=== PATIENT | female | born 1955 | race Caucasian/White ===

== ENCOUNTER 2020-11-18 16:00 | Inpatient (IN) | payer BC, OTHER, MEDICAID ==
[~2020-11-18] VITALS: Ht 172.7 cm; Wt 77.6 kg
[~2020-11-18 16:00] MED LIST: BENZTROPINE MESY2 MG; CALCIUM 500+D1 EAC2; CLONAZEPAM PO; EFFEXOR XR150 MG PO; LEXAPRO20 MG; NORCO 5-325 TA1 EACH PO
[2020-11-18 16:08] VITALS: BP 148/72
[2020-11-18 16:29] LABS: ABSOLUTE EOSINOPHILS 0.1 thou/uL (0.0-0.7); ABSOLUTE LYMPHOCYTES 2.8 thou/uL (0.8-5.3); ABSOLUTE MONOCYTES 0.3 thou/uL (0.0-1.2); ABSOLUTE NEUTROPHILS 2.9 thou/uL (1.6-8.1); BASOPHILS 0.8 %; EOSINOPHILS 1.3 %; HEMATOCRIT 38.3 % (37.0-47.0); HEMOGLOBIN 12.6 gm/dL (12.0-15.0); LYMPHOCYTES 45.4 %; MCH 27.9 pg (26.0-34.0); MCV 84.5 fL (80.0-100.0); MONOCYTES 4.7 %; MPV 8.5 fl. (7.2-11.1); NUCLEATED RBCS 0 /100WBC; PLATELET COUNT* 277 thou/uL (150-400); POLYS 47.8 %; RBC 4.54 mil/uL (4.20-5.00); RDW-CV 14.7 % (10.5-14.5); WBC 6.1 thou/uL (4.0-11.0)
[2020-11-18 16:36] LABS: CALCIUM 10.5 mg/dL (8.5-10.1); POTASSIUM 3.4 mmol/L (3.5-5.1)
[2020-11-18 16:39] LABS: APTT 21.7 Seconds (25.0-31.3); INR 1.1; PROTIME 11.3 Seconds (9.20-11.50)
[2020-11-18 16:46] LABS: ALBUMIN 3.7 g/dL (3.4-5.0); TOTAL BILIRUBIN 0.5 mg/dL (<0.1-1.0)
[2020-11-18 17:14] LABS: URINE BLOOD 1+ (Negative); URINE CLARITY SL CLOUDY; URINE COLOR YELLOW; URINE GLUCOSE-RANDOM NEGATIVE (Negative); URINE LEUKOCYTES-REFLEX 1+ (Negative); URINE PROTEIN 1+ (Negative); URINE SPECIFIC GRAVITY >= 1.030 (1.005-1.030)
[2020-11-18 17:19] LABS: ICTOTEST (BILI CONFIRMATORY) Negative (Negative); URINE BILIRUBIN 1+ (Negative); URINE KETONES 3+ (Negative); URINE NITRITE-REFLEX POSITIVE (Negative)
[2020-11-18 17:25] LABS: SQUAMOUS 0-3 Few /LPF (0-3); WBC CLUMPS Few (None Seen)
[2020-11-18 17:26] LABS: BACTERIA-REFLEX >30 Many /HPF (None Seen); CRYSTALS None Seen /LPF (None Seen); HYALINE CASTS >10 Many /LPF (None Seen); MUCUS >6 Heavy strn/LPF (None Seen); URINE RBC 0-2 Rare /HPF (0-2)
[2020-11-18 18:38] VITALS: BP 128/99
[2020-11-18 20:00] VITALS: BP 136/76
[2020-11-19 04:57] LABS: HEMATOCRIT 33.4 % (37.0-47.0); MCH 27.7 pg (26.0-34.0); MCHC 32.9 g/dL (28.0-37.0); MCV 84.2 fL (80.0-100.0); MPV 8.7 fl. (7.2-11.1); RBC 3.97 mil/uL (4.20-5.00); RDW-CV 14.8 % (10.5-14.5); WBC 5.3 thou/uL (4.0-11.0)
[2020-11-19 05:25] LABS: CALCIUM 8.8 mg/dL (8.5-10.1); CREATININE 0.6 mg/dL (0.6-1.3); POTASSIUM 3.3 mmol/L (3.5-5.1)
[2020-11-19 08:00] VITALS: BP 128/67
--- NOTE | 2020-11-19 11:49 | EKG ---
[place] [address] ELECTROCARDIOGRAM REPORT Name: HUGO CAST Room: [address] ADM IN [facility].#: [id number] Admission: 11/18/20 Attend Phys: Marcela Guerrier MD Discharge: Date of : 53 Date of Service: 11/18/20 1620 Report #: [id number] THIS REPORT FOR: //name// [facility] ED Test Date: 2020-11-18 Test Time: 16:20:02 Pat Name: HUGO CAST Department: Room: [facility] Gender: F Immigration Judge: CCD : 1955 Requested By: Stanley Hernandes Order Number: [id number] MD: Marcos Laurent Measurements Intervals [place] Rate: 115 P: 53 OR: 164 QRS: 71 QRSD: 127 T: -20 QT: 354 QTc: 490 Interpretive Statements Sinus tachycardia Right bundle branch block Anterolateral infarct, age indeterminate Baseline wander in lead(s) II No previous ECG available for comparison Electronically Signed On 11-19-2020 11:49:48 HOME CARE MUSIC THERAPIST by Marcos Laurent [email or web address] <ELECTRONICALLY SIGNED> By: Marcos Laurent MD, FAC 11/19/20 1149 1620 1620 Marcos Laurent MD, [facility] /EPI
[2020-11-19 16:26] VITALS: BP 110/68
[2020-11-19 20:37] VITALS: BP 134/54
[2020-11-20 04:37] LABS: HEMATOCRIT 31.7 % (37.0-47.0); HEMOGLOBIN 10.6 gm/dL (12.0-15.0); MCH 27.9 pg (26.0-34.0); MCHC 33.4 g/dL (28.0-37.0); MCV 83.6 fL (80.0-100.0); MPV 8.2 fl. (7.2-11.1); RBC 3.79 mil/uL (4.20-5.00); RDW-CV 14.3 % (10.5-14.5); WBC 4.8 thou/uL (4.0-11.0)
[2020-11-20 04:44] LABS: CALCIUM 8.3 mg/dL (8.5-10.1); CREATININE 0.6 mg/dL (0.6-1.3); POTASSIUM 4.2 mmol/L (3.5-5.1)
[2020-11-20 08:00] VITALS: BP 141/96
[2020-11-20] MEDS ORDERED: CEFDINIR300 MG PO (09:50)
[2020-11-20 11:16] VITALS: BP 141/96
[2020-11-20 16:34] VITALS: BP 145/84
[2020-11-20 18:02] VITALS: BP 141/96
== END 2020-11-20 18:04 | disposition home health service (06) | DRG 689 ==
LOC: M.ERS 16:00 → M.TBA-ER 17:41 → M.3W 17:41 → M.ERS 18:41 → M.3W 18:50
PROVIDERS: Emergency Medicine Emergency Medical Services; ADMIT Family Medicine; ATTEND Family Medicine
DX: N39.0 Urinary tract infection, site not specified (principal); G93.41 Metabolic encephalopathy; R65.11 Systemic inflammatory response syndrome (SIRS) of non-infectious origin with acute organ dysfunction; E87.6 Hypokalemia; E83.52 Hypercalcemia; E83.39 Other disorders of phosphorus metabolism; E78.5 Hyperlipidemia, unspecified; I10 Essential (primary) hypertension; G89.29 Other chronic pain; Z20.822 Contact with and (suspected) exposure to COVID-19; M54.9 Dorsalgia, unspecified; E66.9 Obesity, unspecified; F32.9 Major depressive disorder, single episode, unspecified; K21.9 Gastro-esophageal reflux disease without esophagitis; Z79.899 Other long term (current) drug therapy; Z88.0 Allergy status to penicillin; Z88.8 Allergy status to other drugs, medicaments and biological substances; Z87.891 Personal history of nicotine dependence; Z68.26 Body mass index [BMI] 26.0-26.9, adult

== ENCOUNTER 2021-08-25 17:24 | Inpatient (IN) | payer OTHER, MEDICAID ==
[~2021-08-25] VITALS: Ht 165.1 cm; Wt 64.9 kg
[~2021-08-25 17:24] MED LIST changes: +CEFDINIR300 MG PO; +CLONAZEPAM 0.50.5 M1 PO; -CLONAZEPAM PO
[2021-08-25 17:25] VITALS: BP 136/81
[2021-08-25 17:48] LABS: ABSOLUTE EOSINOPHILS 0.1 thou/uL (0.0-0.7); ABSOLUTE LYMPHOCYTES 2.6 thou/uL (0.8-5.3); ABSOLUTE MONOCYTES 0.5 thou/uL (0.0-1.2); ABSOLUTE NEUTROPHILS 2.7 thou/uL (1.6-8.1); BASOPHILS 0.7 %; EOSINOPHILS 1.8 %; HEMATOCRIT 32.6 % (37.0-47.0); HEMOGLOBIN 10.8 gm/dL (12.0-15.0); LYMPHOCYTES 43.5 %; MCHC 33.2 g/dL (28.0-37.0); MCV 84.3 fL (80.0-100.0); MONOCYTES 8.5 %; MPV 7.4 fl. (7.2-11.1); NUCLEATED RBCS 0 /100WBC; PLATELET COUNT* 286 thou/uL (150-400); POLYS 45.5 %; RBC 3.87 mil/uL (4.20-5.00); RDW-CV 15.4 % (10.5-14.5)
[2021-08-25 17:53] LABS: CALCIUM 9.4 mg/dL (8.5-10.1); CREATININE 0.8 mg/dL (0.6-1.3)
[2021-08-25 17:58] LABS: ALBUMIN 3.8 g/dL (3.4-5.0); TOTAL BILIRUBIN 0.6 mg/dL (<0.1-1.0); TOTAL PROTEIN 7.2 g/dL (6.4-8.2)
[2021-08-25 18:20] LABS: URINE BLOOD TRACE (Negative); URINE COLOR YELLOW; URINE GLUCOSE-RANDOM NEGATIVE (Negative); URINE KETONES 2+ (Negative); URINE NITRITE-REFLEX NEGATIVE (Negative); URINE PROTEIN NEGATIVE (Negative); URINE SPECIFIC GRAVITY 1.025 (1.005-1.030); URINE UROBILINOGEN 0.2 E.U./dl (0.2-1.0)
[2021-08-25 18:23] LABS: ICTOTEST (BILI CONFIRMATORY) Negative (Negative); URINE BILIRUBIN 1+ (Negative); URINE LEUKOCYTES-REFLEX 2+ (Negative)
[2021-08-25 18:24] LABS: SQUAMOUS 4-10 Moderate /LPF (0-3); URINE CLARITY HAZY; URINE WBC-REFLEX 0-5 Rare /HPF (0-5)
[2021-08-25 18:25] LABS: BACTERIA-REFLEX None Seen /HPF (None Seen); CASTS None Seen /LPF (None Seen); CRYSTALS None Seen /LPF (None Seen); URINE RBC None Seen /HPF (0-2)
[2021-08-25 18:29] LABS: AMP/METHAMP Negative (Negative); BARBITURATES Negative (Negative); BENZODIAZEPINES Negative (Negative); COCAINE Negative (Negative); METHADONE Negative (Negative); OPIATES Negative (Negative); PCP Negative (Negative); THC Negative (Negative)
[2021-08-25 20:35] VITALS: BP 130/78
[2021-08-25 21:22] VITALS: BP 136/78
[2021-08-26] VITALS (7 sets, daily range): BP systolic 122–137; BP diastolic 54–82
--- NOTE | 2021-08-26 01:19 | NUR ---
ASSUMED CARE OF PT AT APPROX 2043; PT ALERT, TALKING CONSTANTLY, FLIGHT OF IDEAS. AT 0030 PT ANXIOUS, UNCOOPERATIVE, AGGITATED. YOU CALL SENT AT 0048, CALL RETURNED BY PHYSICIAN AT 0113, ORDERS GIVEN FOR HALDOL IVP 2MG Q2H PRN AND ATIVAN IVP 2MG Q2H PRN.
[2021-08-26] MEDS ORDERED: ELIQUIS5 MG PO (09:01)
[2021-08-26] MEDS ORDERED: LEVO-T25 MCG PO (09:02)
[2021-08-26] MEDS ORDERED: KLOR-CON M2020 MEQ PO (09:02)
[2021-08-26 10:16] LABS: CALCIUM 8.5 mg/dL (8.5-10.1); CREATININE 0.6 mg/dL (0.6-1.3); MAGNESIUM 1.6 mg/dL (1.8-2.4); PHOSPHORUS* 3.7 mg/dL (2.5-4.9); POTASSIUM 3.5 mmol/L (3.5-5.1)
[2021-08-26] MEDS ORDERED: BREZTRI AEROS10.7 GM (10:16)
[2021-08-26] MEDS ORDERED: LIPITOR 20 MG T20 M1 PO (10:25)
--- NOTE | 2021-08-26 10:25 | EKG ---
[place] [address] ELECTROCARDIOGRAM REPORT Name: HUGO CAST Room: [address] ADM IN .R.#: [id number] Admission: 08/25/21 Attend Phys: Rafael Acuna Discharge: Date of : 53 Date of Service: 08/25/21 1729 Report #: [id number] THIS REPORT FOR: //name// [facility] ED Test Date: 2021-08-25 Test Time: 17:29:52 Pat Name: HUGO CAST Department: Room: [facility] Gender: F Behavior Specialist: : 1955 Requested By: Saúl Ojeda Order Number: [id number] MD: Patrick Lucero Measurements Intervals [place] Rate: 109 P: 72 DC: 177 QRS: 106 QRSD: 125 T: -18 QT: 361 QTc: 487 Interpretive Statements Sinus tachycardia Probable left atrial enlargement Nonspecific intraventricular conduction delay Borderline T abnormalities, inferior leads Compared to ECG 11/18/2020 16:20:02 Intraventricular conduction delay now present T-wave abnormality now present Right bundle-branch block no longer present Myocardial infarct finding no longer present Electronically Signed On 08-26-2021 10:25:33 CDT by Patrick Lucero [email or web address] <ELECTRONICALLY SIGNED> By: Patrick Lucero MD, [facility] 08/26/21 1025 172 172 Patrick Lucero MD, FAC /EPI
--- NOTE | 2021-08-26 11:22 | NUR ---
THE PATIENT IS ALERT. ABLE TO MAKE NEEDS KNOWN. THE PATIENT IS NPO FOR ULTRASPOUND FOR ABDOMEN DISCOMFORT. FALL PRECAUTIONS IN PLACE. SR ON THE MONITOR. CALL LIGHT WITHIN REACH. STAND BY ASSIST. DENIES CP OR SOB
--- NOTE | 2021-08-27 00:41 | NUR ---
ASSUMED CARE OF PT AFTER REPORT AT 1930. PT A&OX3-4. FORGETFUL AT TIMES. VSS. PHYSICAL ASSESSMENT COMPLETED AND CHARTED. PT ON RA. PT COMPLAINED OF BACK PAIN-MED GIVEN PER JAN. PT WITH ORDER FOR DISCHARGE. ESCOTED PT PER NURSING VIA WHEELCHAIR AT 9128 WITH BELONGINGS TO CAB. NO PROBLEMS NOTED AT TIME OF DC.
== END 2021-08-26 23:58 | disposition home or self-care (01) | DRG 70 ==
LOC: M.ERS 17:24 → M.TBA-ER 18:10 → M.2W 18:10
PROVIDERS: Family Medicine; ADMIT Internal Medicine; ATTEND Internal Medicine
DX: G93.41 Metabolic encephalopathy (principal); R65.11 Systemic inflammatory response syndrome (SIRS) of non-infectious origin with acute organ dysfunction; F10.139 Alcohol abuse with withdrawal, unspecified; F32.9 Major depressive disorder, single episode, unspecified; Z20.822 Contact with and (suspected) exposure to COVID-19; G89.29 Other chronic pain; E87.6 Hypokalemia; I10 Essential (primary) hypertension; Y83.8 Other surgical procedures as the cause of abnormal reaction of the patient, or of later complication, without mention of misadventure at the time of the procedure; Y92.89 Other specified places as the place of occurrence of the external cause; Z98.42 Cataract extraction status, left eye; Z98.41 Cataract extraction status, right eye; Z88.0 Allergy status to penicillin; Z90.710 Acquired absence of both cervix and uterus; Z79.899 Other long term (current) drug therapy

== ENCOUNTER 2021-10-04 21:40 | Observation (INO) | payer OTHER, MEDICAID ==
[~2021-10-04] VITALS: Ht 175.3 cm; Wt 61.7 kg
[~2021-10-04 21:40] MED LIST changes: +BREZTRI AEROS10.7 GM; +ELIQUIS5 MG PO; +KLOR-CON M2020 MEQ PO; +LEVO-T25 MCG PO; +LIPITOR 20 MG T20 M1 PO
[2021-10-04 22:02] VITALS: BP 137/68
[2021-10-04 22:05] LABS: ABSOLUTE EOSINOPHILS 0.1 thou/uL (0.0-0.7); ABSOLUTE LYMPHOCYTES 3.1 thou/uL (0.8-5.3); ABSOLUTE MONOCYTES 0.4 thou/uL (0.0-1.2); ABSOLUTE NEUTROPHILS 5.3 thou/uL (1.6-8.1); BASOPHILS 0.5 %; EOSINOPHILS 1.3 %; HEMATOCRIT 34.1 % (37.0-47.0); HEMOGLOBIN 10.9 gm/dL (12.0-15.0); LYMPHOCYTES 34.2 %; MCH 27.2 pg (26.0-34.0); MCV 85.2 fL (80.0-100.0); MONOCYTES 4.8 %; NUCLEATED RBCS 0 /100WBC; PLATELET COUNT* 264 thou/uL (150-400); POLYS 59.2 %; RDW-CV 15.6 % (10.5-14.5); WBC 8.9 thou/uL (4.0-11.0)
[2021-10-04 22:14] LABS: CALCIUM 9.3 mg/dL (8.5-10.1); CREATININE 0.7 mg/dL (0.6-1.3); POTASSIUM 3.2 mmol/L (3.5-5.1)
[2021-10-04 22:20] LABS: ACETAMINOPHEN < 2 ug/mL (10-30); ALCOHOL < 10 mg/dL (<10); SALICYLATE < 2.8 mg/dL (2.8-20.0)
[2021-10-04 22:22] LABS: ALBUMIN 3.6 g/dL (3.4-5.0); MAGNESIUM 1.7 mg/dL (1.8-2.4); TOTAL BILIRUBIN 0.3 mg/dL (<0.1-1.0); TOTAL PROTEIN 7.4 g/dL (6.4-8.2)
[2021-10-05] VITALS (8 sets, daily range): BP systolic 91–118; BP diastolic 49–94
[2021-10-05 00:09] LABS: URINE BILIRUBIN NEGATIVE (Negative); URINE BLOOD TRACE (Negative); URINE CLARITY CLEAR; URINE COLOR YELLOW; URINE GLUCOSE-RANDOM NEGATIVE (Negative); URINE KETONES NEGATIVE (Negative); URINE LEUKOCYTES-REFLEX 1+ (Negative); URINE PROTEIN NEGATIVE (Negative); URINE SPECIFIC GRAVITY >= 1.030 (1.005-1.030); URINE UROBILINOGEN 0.2 E.U./dl (0.2-1.0)
[2021-10-05 00:10] LABS: URINE NITRITE-REFLEX POSITIVE (Negative)
[2021-10-05 00:15] LABS: BACTERIA-REFLEX >30 Many /HPF (None Seen); CASTS None Seen /LPF (None Seen); CRYSTALS None Seen /LPF (None Seen); MUCUS 4-6 Moderate strn/LPF (None Seen); SQUAMOUS 0-3 Few /LPF (0-3); TRANSITIONAL EPITHEL CELL 0-3 Few /LPF (None Seen); URINE WBC-REFLEX >25 Many /HPF (0-5); WBC CLUMPS Few (None Seen)
[2021-10-05 00:17] LABS: AMP/METHAMP Negative (Negative); BARBITURATES Negative (Negative); BENZODIAZEPINES Negative (Negative); COCAINE Negative (Negative); METHADONE Negative (Negative); OPIATES Negative (Negative); PCP Negative (Negative); THC Negative (Negative)
--- NOTE | 2021-10-05 09:00 | NUR ---
PT WALKED WITH STAND BY ASSIST TO BATHROOM THIS AM THEN BACK TO BED. PT ATE 60% OF BREAKFAST THIS AM. CURRENTLY RESTING IN BED.
--- NOTE | 2021-10-05 10:16 | EKG ---
[place] [address] ELECTROCARDIOGRAM REPORT Name: HUGO CAST Room: [address]#: [id number] Admission: 10/05/21 Attend Phys: Kassie Dumont, Discharge: Date of : 53 Date of Service: 10/04/212210 Report #: [id number] THIS REPORT FOR: //name// [facility] ED Test Date: 2021-10-04 Test Time: 22:11:36 Pat Name: HUGO CAST Department: Room: [facility] Gender: F Dolphin Trainer: : 1955 Requested By: Tere Jones Order Number: [id number] MD: Marcos Laurent Measurements Intervals [place] Rate: 100 P: NM: QRS: 89 QRSD: 130 T: 8 QT: 367 QTc: 474 Interpretive Statements sinus tachycardia Right bundle branch block Compared to ECG 08/25/2021 17:29:52 RIGHT BUNDLE BRANCH BLOCK now noted Electronically Signed On 10-05-2021 10:16:42 BAKE ROOM WORKER by Marcos Laurent [email or web address] <ELECTRONICALLY SIGNED> By: Marcos Laurent MD, FACC 10/05/21 1016 10 10 Marcos Laurent MD, FAC /EPI
[2021-10-05] MEDS ORDERED: B12 ACTIVE1000 MCG PO (10:58)
--- NOTE | 2021-10-05 12:35 | NUR ---
Admission Assessment Unable to speak with pt, just left for cath lab technologist per nurse. Called Dtr Tomeka [phone] and recvd message "unable to receive calls". Called Dtr Shamika [phone] unable to leave VM due to full box. From previous admit this year, pt lives in apartment, and ER documentation confirms this. Both dtrs listed with last name Sid and both show same apartment address as moms. Previous hx noted as Lenny RODRIGUEZ,pt has Cpap at home,and roller walker. No SNU or ARU hx as of last admit November 2020. CM will continue to follow for any anticipated discharge needs.
--- NOTE | 2021-10-05 19:04 | NUR ---
Patientame to hospital yesterday by police. Patient had gone into someone's apartment. Patient had altered mental status. She came to room 315 by hospital bed. Patient is awake and oriented. Pupils equal and reactive. 3+ 3+. Bed alarm is on. Patient instructed not to get up by herself. Patient is cooperative, and very pleasant.
--- NOTE | 2021-10-05 23:08 | NUR ---
ASSUMED CARE AT 1930. PATIENT RESTING IN BED. UP WITH SBA. VOIDS PER TOILET. SL TO LT HAND INTACT. ALERT AND ORIENTED. NO C/O PAIN. COMPLIANT WITH FALL PRECAUTIONS. BED ALARM ON. CALL LITE IN REACH. HOURLY ROUNDS CONTINUE.
[2021-10-06 03:50] VITALS: BP 100/47
[2021-10-06 05:43] LABS: ABSOLUTE EOSINOPHILS 0.2 thou/uL (0.0-0.7); ABSOLUTE LYMPHOCYTES 2.5 thou/uL (0.8-5.3); ABSOLUTE MONOCYTES 0.3 thou/uL (0.0-1.2); ABSOLUTE NEUTROPHILS 1.9 thou/uL (1.6-8.1); BASOPHILS 0.3 %; EOSINOPHILS 4.9 %; HEMATOCRIT 28.5 % (37.0-47.0); HEMOGLOBIN 9.4 gm/dL (12.0-15.0); MCH 27.9 pg (26.0-34.0); MCV 84.6 fL (80.0-100.0); MONOCYTES 5.7 %; MPV 8.2 fl. (7.2-11.1); NUCLEATED RBCS 0 /100WBC; PLATELET COUNT* 198 thou/uL (150-400); POLYS 38.1 %; RBC 3.36 mil/uL (4.20-5.00); RDW-CV 15.1 % (10.5-14.5)
[2021-10-06 05:48] LABS: CALCIUM 8.6 mg/dL (8.5-10.1); CREATININE 0.5 mg/dL (0.6-1.3); POTASSIUM 4.1 mmol/L (3.5-5.1)
--- NOTE | 2021-10-06 05:49 | NUR ---
SLEPT MUCH OF SHIFT. UP WITH SBA. VOIDED PER TOILET. STATES THAT SHE FURNITURE WALKS AT HOME AND SOMETIMES USES A WALKER AT HOME. WALKER OBTAINED FOR PATIENT, BUT PATIENT HAS BEEN SLEEPING SINCE. MEDICATED FOR PAIN PER SCHEDULED ORDER. RETURNS TO SLEEP. HOURLY ROUNDS CONTINUE. BED ALARM ON. CALL LITE IN REACH.
[2021-10-06 08:00] VITALS: BP 119/64
[2021-10-06] MEDS ORDERED: CEFDINIR300 MG PO (09:48)
--- NOTE | 2021-10-06 10:37 | NUR ---
Assumed patients care following report at 0715. Patient resting quietly.
[2021-10-06 10:46] VITALS: BP 119/64
--- NOTE | 2021-10-06 14:18 | NUR ---
Discharge patient soon. Waiting on cab to take patient home. Reviewed discharge information, and patient verbalized understanding. Patient will go to lobby assisted by personnel. Wheelchair. All belongings sent with patient.
--- NOTE | 2021-10-06 15:11 | NUR ---
Patient leaves via wheelchair to lobby. Ride is here to take patient home.
== END 2021-10-06 15:40 | disposition home or self-care (01) ==
LOC: M.ERS 21:40 → M.TBA-ER 10-05 01:42 → M.3W 10-05 16:06
PROVIDERS: Emergency Medicine; Internal Medicine; ADMIT Internal Medicine; ATTEND Internal Medicine
DX: R41.82 Altered mental status, unspecified (principal); Z20.822 Contact with and (suspected) exposure to COVID-19; F41.9 Anxiety disorder, unspecified; F31.9 Bipolar disorder, unspecified; E03.9 Hypothyroidism, unspecified; J44.9 Chronic obstructive pulmonary disease, unspecified; I48.91 Unspecified atrial fibrillation; I10 Essential (primary) hypertension; E78.5 Hyperlipidemia, unspecified; G43.909 Migraine, unspecified, not intractable, without status migrainosus; F17.210 Nicotine dependence, cigarettes, uncomplicated; N39.0 Urinary tract infection, site not specified; G93.40 Encephalopathy, unspecified; L40.50 Arthropathic psoriasis, unspecified; H81.10 Benign paroxysmal vertigo, unspecified ear; Z98.890 Other specified postprocedural states; Z90.710 Acquired absence of both cervix and uterus; Z82.49 Family history of ischemic heart disease and other diseases of the circulatory system

== ENCOUNTER 2021-10-16 12:16 | Emergency (ER) | payer OTHER, MEDICAID ==
[~2021-10-16] VITALS: Ht 160 cm; Wt 83.9 kg
[~2021-10-16 12:16] MED LIST changes: +B12 ACTIVE1000 MCG PO
[2021-10-16 13:01] LABS: ABSOLUTE EOSINOPHILS 0.1 thou/uL (0.0-0.7); ABSOLUTE LYMPHOCYTES 2.8 thou/uL (0.8-5.3); ABSOLUTE MONOCYTES 0.2 thou/uL (0.0-1.2); ABSOLUTE NEUTROPHILS 3.6 thou/uL (1.6-8.1); BASOPHILS 0.4 %; EOSINOPHILS 1.7 %; HEMOGLOBIN 10.8 gm/dL (12.0-15.0); LYMPHOCYTES 40.7 %; MCH 27.5 pg (26.0-34.0); MCHC 32.8 g/dL (28.0-37.0); MCV 83.8 fL (80.0-100.0); MONOCYTES 3.6 %; MPV 7.8 fl. (7.2-11.1); NUCLEATED RBCS 0 /100WBC; PLATELET COUNT* 267 thou/uL (150-400); POLYS 53.6 %; RBC 3.94 mil/uL (4.20-5.00); RDW-CV 15.6 % (10.5-14.5); WBC 6.8 thou/uL (4.0-11.0)
[2021-10-16 13:42] LABS: CALCIUM 9.3 mg/dL (8.5-10.1); CREATININE 0.6 mg/dL (0.6-1.3); POTASSIUM 3.5 mmol/L (3.5-5.1)
[2021-10-16 13:46] LABS: ALBUMIN 3.4 g/dL (3.4-5.0); ALCOHOL < 10 mg/dL (<10); SALICYLATE < 2.8 mg/dL (2.8-20.0); TOTAL BILIRUBIN 0.4 mg/dL (<0.1-1.0); TOTAL PROTEIN 6.6 g/dL (6.4-8.2)
[2021-10-16 13:49] LABS: ACETAMINOPHEN < 2 ug/mL (10-30)
[2021-10-16 14:03] LABS: URINE BILIRUBIN NEGATIVE (Negative); URINE BLOOD NEGATIVE (Negative); URINE CLARITY CLEAR; URINE COLOR YELLOW; URINE GLUCOSE-RANDOM NEGATIVE (Negative); URINE KETONES NEGATIVE (Negative); URINE LEUKOCYTES-REFLEX NEGATIVE (Negative); URINE NITRITE-REFLEX NEGATIVE (Negative); URINE PROTEIN NEGATIVE (Negative); URINE UROBILINOGEN 0.2 E.U./dl (0.2-1.0)
[2021-10-16 14:44] LABS: AMP/METHAMP Negative (Negative); BARBITURATES Negative (Negative); BENZODIAZEPINES Negative (Negative); COCAINE Negative (Negative); METHADONE Negative (Negative); OPIATES Negative (Negative); PCP Negative (Negative); THC Negative (Negative)
[2021-10-16 22:00] VITALS: BP 133/70
== END 2021-10-16 22:00 ==
LOC: M.ERS 12:16
PROVIDERS: Emergency Medicine Emergency Medical Services
DX: F31.2 Bipolar disorder, current episode manic severe with psychotic features (principal); Z20.822 Contact with and (suspected) exposure to COVID-19; F41.9 Anxiety disorder, unspecified; E03.9 Hypothyroidism, unspecified; I10 Essential (primary) hypertension; G43.909 Migraine, unspecified, not intractable, without status migrainosus; J44.9 Chronic obstructive pulmonary disease, unspecified; I48.91 Unspecified atrial fibrillation; Z90.89 Acquired absence of other organs; Z88.6 Allergy status to analgesic agent; Z88.0 Allergy status to penicillin; Z79.899 Other long term (current) drug therapy; Z88.8 Allergy status to other drugs, medicaments and biological substances; Z98.890 Other specified postprocedural states

== ENCOUNTER 2021-11-11 18:23 | Emergency (ER) | payer OTHER, MEDICAID ==
[~2021-11-11] VITALS: Ht 180.3 cm; Wt 63.5 kg
[2021-11-11 19:05] LABS: ABSOLUTE EOSINOPHILS 0.2 thou/uL (0.0-0.7); ABSOLUTE LYMPHOCYTES 3.8 thou/uL (0.8-5.3); ABSOLUTE MONOCYTES 0.4 thou/uL (0.0-1.2); BASOPHILS 0.7 %; EOSINOPHILS 2.1 %; HEMATOCRIT 34.3 % (37.0-47.0); LYMPHOCYTES 51.1 %; MCH 27.1 pg (26.0-34.0); MCHC 32.1 g/dL (28.0-37.0); MCV 84.5 fL (80.0-100.0); MONOCYTES 5.3 %; MPV 7.7 fl. (7.2-11.1); NUCLEATED RBCS 0 /100WBC; PLATELET COUNT* 267 thou/uL (150-400); POLYS 40.8 %; RBC 4.06 mil/uL (4.20-5.00); RDW-CV 16.2 % (10.5-14.5); WBC 7.4 thou/uL (4.0-11.0)
[2021-11-11 19:33] LABS: SALICYLATE < 2.8 mg/dL (2.8-20.0)
[2021-11-11 19:36] LABS: ACETAMINOPHEN < 2 ug/mL (10-30); ALCOHOL < 10 mg/dL (<10)
[2021-11-11 19:43] LABS: CALCIUM 9.3 mg/dL (8.5-10.1); CREATININE 0.9 mg/dL (0.6-1.3); POTASSIUM 3.6 mmol/L (3.5-5.1)
[2021-11-11 19:48] LABS: ALBUMIN 3.6 g/dL (3.4-5.0); TOTAL BILIRUBIN 0.2 mg/dL (<0.1-1.0)
[2021-11-11 22:00] VITALS: BP 105/65
--- NOTE | 2021-11-12 12:32 | EKG ---
[place] [address] ELECTROCARDIOGRAM REPORT Name: SERENEHUGO Sanchez Room: [facility]#: [id number] Admission: 11/11/21 Attend Phys: Discharge: 11/11/21 Date of : 53 Date of Service: 11/11/211954 Report #: [id number] THIS REPORT FOR: //name// [facility] ED Test Date: 2021-11-11 Test Time: 19:55:51 Pat Name: HUGO CAST Department: Room: Gender: Public Affairs Officer: [place] : 1955 Requested By: Stanley Hernandes Order Number: [id number] MD: Keenan Bragg Measurements Intervals [place] Rate: 87 P: 26 FL: 173 QRS: 85 QRSD: 122 T: 32 QT: 415 QTc: 500 Interpretive Statements Sinus rhythm Right bundle branch block Compared to ECG 10/04/2021 22:11:36 Sinus tachycardia no longer present Electronically Signed On 11-12-2021 12:32:33 AUTOMOBILE DESIGNER by Keenan Bragg [email or web address] <ELECTRONICALLY SIGNED> By: Keenan Bragg MD, FAC 11/12/21 1232 [age] Keenan Bragg MD, [facility] /EPI
== END 2021-11-11 22:00 | disposition home or self-care (01) ==
LOC: M.ERS 18:23
PROVIDERS: Emergency Medicine Emergency Medical Services
DX: F31.9 Bipolar disorder, unspecified (principal); R41.82 Altered mental status, unspecified; F32.9 Major depressive disorder, single episode, unspecified; F41.9 Anxiety disorder, unspecified; E03.9 Hypothyroidism, unspecified; I10 Essential (primary) hypertension; E78.5 Hyperlipidemia, unspecified; G43.909 Migraine, unspecified, not intractable, without status migrainosus; J44.9 Chronic obstructive pulmonary disease, unspecified; Z90.710 Acquired absence of both cervix and uterus; Z90.89 Acquired absence of other organs; Z79.899 Other long term (current) drug therapy; Z88.6 Allergy status to analgesic agent; Z88.0 Allergy status to penicillin; Z88.8 Allergy status to other drugs, medicaments and biological substances

== ENCOUNTER 2021-11-16 12:08 | Emergency (ER) | payer OTHER, MEDICAID ==
[~2021-11-16] VITALS: Ht 177.8 cm; Wt 49.9 kg
[2021-11-16 13:10] VITALS: BP 127/70
== END 2021-11-16 13:11 | disposition home or self-care (01) ==
LOC: M.ERS 12:08
DX: Z71.1 Person with feared health complaint in whom no diagnosis is made (principal); F32.9 Major depressive disorder, single episode, unspecified; F41.9 Anxiety disorder, unspecified; E03.9 Hypothyroidism, unspecified; I10 Essential (primary) hypertension; E78.5 Hyperlipidemia, unspecified; J44.9 Chronic obstructive pulmonary disease, unspecified; G43.909 Migraine, unspecified, not intractable, without status migrainosus; Z90.710 Acquired absence of both cervix and uterus; Z90.89 Acquired absence of other organs; Z79.899 Other long term (current) drug therapy; Z88.0 Allergy status to penicillin; Z88.6 Allergy status to analgesic agent; Z88.8 Allergy status to other drugs, medicaments and biological substances